=== PATIENT | female | born 1995 | race African-American/Black ===

== ENCOUNTER 2018-10-26 07:46 | Emergency (ER) | payer OTHER ==
--- NOTE | 2018-10-26 08:10 | EDM.PDOC ---
ED HPI GENERAL MEDICAL PROBLEM - General Chief Complaint: General Stated Complaint: CRAMPING Time Seen by Provider: 10/26/18 08:10 Source of Information: Reports: Patient History Limitations: Reports: No Limitations - History of Present Illness INITIAL COMMENTS - FREE TEXT/NARRATIVE: HISTORY AND PHYSICAL: History of present illness: Patient is a 23-year-old female presents to the ED with complaint of pelvic cramping. She states she is currently on her period and she is having bad cramping that is hurting her back and states that she can barely walk due to the pain. She has been taking Tylenol with relief of symptoms. She has a history of this but states that she cannot tolerate control and has not followed up with an INCOME TAX MANAGER for a while. She denies fevers, chills, nausea, vomiting, diarrhea. Review of systems: As per history of present illness and below otherwise all systems reviewed and negative. Past medical history: As per history of present illness and as reviewed below otherwise noncontributory. Surgical history: As per history of present illness and as reviewed below otherwise noncontributory. Social history: No reported history of drug or alcohol abuse. Family history: As per history of present illness and as reviewed below otherwise noncontributory. Physical exam: General: Patient sitting comfortably in no acute distress and nontoxic appearing HEENT: Atraumatic, normocephalic, pupils reactive, negative for conjunctival pallor or scleral icterus, mucous membranes moist, throat clear, neck supple, nontender, trachea midline. No meningeal signs. Lungs: Clear to auscultation, breath sounds equal bilaterally, chest nontender. Heart: S1S2, regular, negative for clicks, rubs, or overt murmur. Abdomen: Soft, nondistended, nontender. Negative for masses or hepatosplenomegaly. Negative for costovertebral tenderness. No rigidity, rebound , guarding. Pelvis: Stable nontender. Genitourinary: Deferred. Rectal: Deferred. Extremities: Atraumatic, negative for cords or calf pain. Neurovascular unremarkable. Neuro: Awake, alert, oriented. Cranial nerves II through XII unremarkable. Cerebellum unremarkable. Motor and sensory unremarkable throughout. Exam nonfocal. Notes: Diagnostics: UA, urine hCG Therapeutics: Toradol 60mg IM Prescriptions: Diclofenac Impression: Menstrual cramps Plan: Take diclofenac and tylenol as needed Follow up with INCOME TAX MANAGER Return to ED as needed as discussed Definitive disposition and diagnosis as appropriate pending reevaluation and review of above. Lower Pelvic Pain Score (Numeric/FACES): 10 - Related Data Allergies Allergy/AdvReac Type Severity Reaction Status Date / Time aspirin Allergy Hives Verified 10/26/18 08:08 morphine Allergy Itching Verified 10/26/18 08:08 cats Allergy Swelling Uncoded 10/26/18 08:08 Home Meds: Home Meds PNV95/Ferrous Fumarate/FA [ Tablet] 1 tab PO DAILY 07/27/16 [History] Diclofenac Sodium [Voltaren] 75 mg PO BIDMEALS 10 Days #20 tab.cr 10/26/18 [Rx] Past Medical History HEENT History: Reports: Hard of Hearing Cardiovascular History: Reports: None Respiratory History: Reports: Other (See Below) Other Respiratory History: substernal chest pain Gastrointestinal History: Reports: Bowel Obstruction, Chronic Constipation, GERD Genitourinary History: Reports: None, Other (See Below) INCOME TAX MANAGER History: Reports: Other (See Below), Other INCOME TAX MANAGER History: 11 weeks . Neurological History: Reports: Seizure Psychiatric History: Reports: Anxiety, Depression, Other (See Below) Other Psychiatric History: sleep disorder Endocrine/Metabolic History: Reports: Other (See Below) Other Endocrine/Metabolic History: Willie-Wiedemann syndrome Hematologic History: Reports: Iron Deficiency Immunologic History: Reports: Other (See Below) Other Immunologic History: HX WITH CHEMO Oncologic (Cancer) History: Reports: Liver, Other (See Below), Renal Other Oncologic History: Wilm's tumor, kidney. Dermatologic History: Reports: None - Past Surgical History GI Surgical History: Reports: Colon, Lysis of Adhesions, Other (See Below) Female Surgical History: Reports: Breast Reduction, Nephrectomy ED ROS GENERAL - Review of Systems Review Of Systems: ROS reveals no pertinent complaints other than HPI. ED EXAM, GENERAL - Physical Exam Exam: See Below (See dictation) Course - Vital Signs Last Recorded V/S: Last Vital Signs Temp 98.7 F 10/26/18 08:11 Pulse 93 10/26/18 08:11 Resp 15 10/26/18 08:11 BP 139/75 10/26/18 08:11 Pulse Ox 97 10/26/18 08:11 - Orders/Labs/Meds Labs: Laboratory Tests 10/26/18 10/26/18 Range/Units 08:30 08:30 Urine Color YELLOW Urine Appearance HAZY Urine pH 6.0 (5.0-8.0) Ur Specific [place] 1.020 (1.001-1.035) Urine Protein NEGATIVE (NEGATIVE) mg/dL Urine Glucose (UA) NEGATIVE (NEGATIVE) mg/dL Urine Ketones NEGATIVE (NEGATIVE) mg/dL Urine Occult Blood LARGE H (NEGATIVE) Urine Nitrite NEGATIVE (NEGATIVE) Urine Bilirubin NEGATIVE (NEGATIVE) Urine Urobilinogen 0.2 (<2.0) EU/dL Ur Leukocyte Esterase NEGATIVE (NEGATIVE) Urine RBC 15-20 (0-2/HPF) Urine WBC 0-2 (0-5/HPF) Ur Epithelial Cells OCCASIONAL (NONE-FEW) Urine Bacteria FEW (NEGATIVE) Urine HCG, Qual NEGATIVE (NEGATIVE) Meds: Medications Discontinued Medications Generic Name Dose Route Start Last Admin Trade Name Yehudaq PRN Reason Stop Dose Admin Ketorolac Tromethamine 60 mg 10/26/18 08:18 10/26/18 08:42 Toradol IM 10/26/18 08:19 60 mg ONETIME ONE Administration Departure - Departure Time of Disposition: 08:56 Disposition: Home, Self-Care 01 Condition: Good Clinical Impression: Menstrual cramp - Discharge Information Prescriptions: Diclofenac Sodium [Voltaren] 75 mg PO BIDMEALS 10 Days #20 tab.cr Referrals: PCP,None [Primary Care Provider] - Forms: ED Department Discharge Additional Instructions: The following information is given to patients seen in the emergency department who are being discharged to home. This information is to outline your options for follow-up care. We provide all patients seen in our emergency department with a follow-up referral. The need for follow-up, as well as the timing and circumstances, are variable depending upon the specifics of your emergency department visit. If you don't have a primary care physician on staff, we will provide you with a referral. We always advise you to contact your personal physician following an emergency department visit to inform them of the circumstance of the visit and for follow-up with them and/or the need for any referrals to a consulting specialist. The emergency department will also refer you to a specialist when appropriate. This referral assures that you have the opportunity for follow-up care with a specialist. All of these measure are taken in an effort to provide you with optimal care, which includes your follow-up. Under all circumstances we always encourage you to contact your private physician who remains a resource for coordinating your care. When calling for follow-up care, please make the office aware that this follow-up is from your recent emergency room visit. If for any reason you are refused follow-up, please contact the [facility] Emergency Department at and asked to speak to the emergency department charge nurse. [facility] [address] [place] [id number] [facility] Primary [facility] - Women's [facility] [address] [place] [id number] Take diclofenac and tylenol as needed Follow up with INCOME TAX MANAGER Return to ED as needed as discussed
[2018-10-26] MEDS ORDERED: Ketorolac 60 MG/2 ML SDV IM ONE (08:18)
[2018-10-26 09:11] VITALS: BP 127/66; PULSE 77
== END 2018-10-26 09:12 | disposition home or self-care (01) ==
LOC: MW.ED 07:46
DX: N94.6 Dysmenorrhea, unspecified (principal); Z88.5 Allergy status to narcotic agent; Z88.8 Allergy status to other drugs, medicaments and biological substances; Z79.899 Other long term (current) drug therapy
CPT/HCPCS: 81001; 81025; 96372; 99284; J1885; 99282